=== PATIENT | male | born 2005 | race Caucasian/White ===

== ENCOUNTER 2025-04-05 11:55 | Outpatient (CLI) | payer BC, SELFPAY ==
--- NOTE | ~2025-04-05 | CT_ITS ---
EXAM/PROCEDURE: CT sinus wo con HISTORY: Chronic sinusitis COMPARISON: None available. TECHNIQUE: Paranasal sinus CT FINDINGS: The paranasal sinuses are all fully aerated. Ostiomeatal complexes are patent. Nasal septum is midline and the nasal turbinates appear within normal limits. Periorbital paranasal calvarial structures appear within normal limits. Mastoid air cells and middle ear cavities are also fully aerated. IMPRESSION: No evidence of paranasal sinus disease. The nasal septum is midline. Reviewed, dictated and finalized at location A. [place] SUPPORT MANAGER
== END 2025-04-05 11:56 | disposition home or self-care (01) ==
LOC: MICIMG 11:56
PROVIDERS: PCP Otolaryngology Otolaryngology/Facial Plastic Surgery; Visit Provider Otolaryngology Otolaryngology/Facial Plastic Surgery
DX: J32.9 Chronic sinusitis, unspecified (principal); G47.30 Sleep apnea, unspecified; R09.81 Nasal congestion
CPT/HCPCS: 70486